=== PATIENT | female | born 1990 | race Caucasian/White ===

== ENCOUNTER 2023-08-01 13:00 | Outpatient (RCR) | payer OTHER, SELFPAY ==
--- NOTE | 2023-07-04 13:38 | OT.OP.EVAL ---
Visit Care Team Role Provider Type Tono Garcia Attending Provider Non-Staff Family Provider Primary Care Provider Referring Provider Specialty: Medical Address: [address] [place] [address], [place], [address] Fax: Email: Occupational Therapy Initial Evaluation OT Outpatient Adult Evaluation Start: 07/04/23 13:05 Freq: Status: Active Protocol: Document 07/04/23 13:05 AMS (Rec: 07/04/23 13:37 AMS [id number]) General Information - Adult Visit Number EVAL; 0/12 visits Plan of Care Dates 07/04/23 - 08/15/23 Insurance Information Prime; EVAL CHARGE ONLY; *Auth x 12 visits Visit Start Time 12:15 Visit Stop Time 13:00 Treatment Setting Outpatient Care Note Type Initial Evaluation Identification Confirmed Yes Identification Confirmed By Self 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 [place] will be modified independent with execution of home exercise program utilizing provided written and visual instructions from therapist as needed. 2. [place] will demonstrate increased ability to participate in meaningful activities in a variety of environments with active incorporation of the non- dominant hand: 2a. This will be evidenced by [place] indicating 2 or less on the Pain Assessment Grid relative to distal left upper extremity. 2b. This will be evidenced by [place] obtaining a score of 15. 00 or less on the QuickDASH UE Outcome Measure. 2c. This will be evidenced by [place] obtaining a score of 20. 00 or less on the QuickDASH UE Work Module. 2d. This will be evidenced by improved strength of L hand w / public information director and pinch strength testing (public information director and pinch strength testing will have improved by 3 or more # of force). Assessment/Plan Treatment Assessment Orlando is 32 y.o. and right hand dominant; she was referred to outpatient OT secondary to left wrist extensor tenosynovitis. 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 [place] reported pain/ discomfort of L wrist presented in Apr. She denies x-rays, numbness and tingling. Pain Assessment Grids completed; indication of 3-5 out of 10 on pain scale relative to medial dorsal and volar areas of left wrist proximal to carpals. Discomfort w/ active weight bearing and w/ passive wrist flex/ext w/ and without elbow ext. Passive wrist ext being completed w/ forearm pronation . Able to tolerate 2nd trial w / modified prayer stretch w/ passive ext. QuickDASH UE Outcome Measure Score = 22.73; QuickDASH UE Work Module Score = 31.25. [place] intermittently utilizes left wrist brace at work which was provided by PCP; she frequently removes brace to complete stretches/range of motion. She modifies daily tasks, including hold cell phone, playing magic, and transporting heavier objects ( publication boxes, cat supplies, laptops). She is currently not doing push-ups and is not weight lifting. GONIOMETER PAIN-FREE ROM MEASUREMENTS: 0-75 degrees active R wrist ext vs 0-70 degrees active L wrist ext; 0- 60 degrees active R wrist flex vs 0-55 degrees active L wrist flex; 0-[address] active bilateral wrist [address]; 0- 30 degrees active bilateral wrist UD. Dynamometer II Strength Testing Results with elbow in 90 degrees Flexion = R public information director 67.0# of force ( compared to 30-34 same-aged peers 121.8 +/- 22.4# of force ) versus L public information director 35.0# of force (compared to - same-aged peers 110.4 +/- 21.7# of force ). Dynamometer II Strength Testing Results with Elbow Extended = R public information director 59.0# of force versus L public information director 32.0# of force. Lateral Jones Pinch = R lateral pinch 14.5# of force ( compared to 30-34 same-aged peers 18.7 +/- 3.0# of force) versus L lateral pinch 12.0# of force (compared to 30-34 same-aged peers 17.8 +/- 3.6# of force). Tip Pinch = R tip pinch 6.0# of force (compared to 30-34 same-aged peers 12.6 +/- 3.0# of force) versus L tip pinch 4.5# of force ( compared to 30-34 same-aged peers 11.7 +/- 2.8# of force). 3-Jaw Pinch = R 3-jaw pinch 10.5# of force (compared to 30 -34 same-aged peers 19.3 +/- 5 .0# of force) versus L 3-jaw pinch 8.5# of force (compared to -34 same-aged peers 18.1 +/- 4.8# of force). Discomfort reported medial dorsal (prox to wrist) w/ resisted wrist ext and wrist flex. MMT 5/[address], UD, flex, ext and R wrist RD and UD. (-) intrinsic tightness noted w/ hook fist; able to execute all tendon glides without complaints. Outpatient OT is recommended to develop home exercise program, address hand/pinch weakness and discuss compensatory/modification strategies/AE not already utilizing, as well as possible conservative measures of pain relief (e.g., contrast baths given diagnosis of tenosynovitis). Home Exercise Program 07/04/23 = Discussed alt to passive wrist flex/ext w/ elbow in 90 degrees flex, including passive wrist ext w/ use of wall and/or modified prayer stretch, with rec to hold for 20 to 30 sec and completing daily 1-2 reps or as needed. Length of treatment (weeks) 6 Plan of Care Start Date 07/04/23 Plan of Care End Date 08/15/23 Treatment Frequency Once a Week Therapeutic Contents Active Range of Motion, Adaptive Equipment Education, Client Education,Cognitive Skills Development,Functional Activities,Home Exercise Program,Joint Protection, Manual Therapy,Education, Neurodevelopment Treatment, Neuromuscular Re-Education, Self-Care,Stretching/ Flexibility Activities, Therapeutic Activities, Therapeutic Exercises, Modalities Modalities As Needed,As Prescribed Additional Types of Modalities Heat/Ice/Contrast Baths/ Ultrasound/Paraffin Bath
--- NOTE | 2023-07-11 13:01 | OT.OP.TRT ---
Visit Care Team Role Provider Type Tono Garcia Attending Provider Non-Staff Family Provider Primary Care Provider Referring Provider Specialty: Medical Address: [address] [place] [address], [facility], [place], [address] Fax: Email: Occupational Therapy Treatment Note OT Outpatient Treatment Note - Adult Start: 07/04/23 13:05 Freq: Status: Active Protocol: Document 07/11/23 12:47 AMS (Rec: 07/11/23 13:01 AMS [id number]) OT Outpatient Adult Treatment Note Session Time Visit Start Time 12:10 Visit Stop Time 12:47 Visit Information Visit Number 06/13 visits Plan of Care Dates 07/04/23 - 08/15/23 Insurance Information Prime; EVAL CHARGE ONLY; *Auth x 12 visits Setting Treatment Setting Outpatient Care Visit Type Note Type Treatment Note General Information General Information Orlando is 32 y.o. and right hand dominant; she was referred to outpatient OT secondary to left wrist extensor tenosynovitis. 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 [place] reported pain/ discomfort of L wrist presented in Apr. She denies x-rays, numbness and tingling. Pain Assessment Grids completed; indication of 3-5 out of 10 on pain scale relative to medial dorsal and volar areas of left wrist proximal to carpals. Discomfort w/ active weight bearing and w/ passive wrist flex/ext w/ and without elbow ext. - Subjective Identification Type Name Identification Reconciled With Medical Record Observations Report of pain/discomfort in the left wrist when pushing up versus down. Report of use of brace, removing brace and stretching/ranging wrist, and use of topical pain relief gel /treatment. Patient/Caregiver Compliance with Home Good Exercise Program - Objective Objective Measurements Please refer to below for progress towards meeting established OT goals: Intermediate Goals 1. [place] will be modified independent with execution of home exercise program utilizing provided written and visual instructions from therapist as needed. 2. [place] will demonstrate increased ability to participate in meaningful activities in a variety of environments with active incorporation of the non- dominant hand: 2a. This will be evidenced by [place] indicating 2 or less on the Pain Assessment Grid relative to distal left upper extremity. 2b. This will be evidenced by [place] obtaining a score of 15. 00 or less on the QuickDASH UE Outcome Measure. 2c. This will be evidenced by [place] obtaining a score of 20. 00 or less on the QuickDASH UE Work Module. 2d. This will be evidenced by improved strength of L hand w / dinkey engineer and pinch strength testing (dinkey engineer and pinch strength testing will have improved by 3 or more # of force). - Exercises 3 Descriptor Resisted pinch/dinkey engineer/hand strengthening. Medium firm resistive blue theraputty. 2 Descriptor Passive ROM/tendon glides. Passive wrist flex 90 degrees elbow flex. Hold for 20 sec x 1 rep. Passive wrist ext 90 degrees elbow flex. Hold for 20 sec x [address] 90 degrees elbow flex w/ use of TT. Hold for 20 sec x 1 rep. Passive wrist UD 90 degrees elbow flex w/ use of TT. Hold for 20 sec x 1 rep. Tendon glides series. x 5 cycles. 1 Descriptor UEB x 10 minutes seated. x 7 minutes forwards direction . x 3 minutes backwards direction. - Assessment Assessment of Improvement Report of pain/discomfort in L wrist with pushing up versus down; is alternating between wearing of brace, topical pain gel application, and ranging/ moving the wrist. Reviewed wrist stretches w/ inclusion of passive wrist RD/UD. Advanced home exercise program . See below. Outpatient OT is recommended to develop home exercise program, address hand/pinch weakness and discuss compensatory/modification strategies/AE not already utilizing, as well as possible conservative measures of pain relief (e.g., contrast baths given diagnosis of tenosynovitis). Home Exercise Program 07/11/23 = Provided w/ medium, firm blue theraputty for home use. Instructed in dinkey engineer/finger flex strengthening, lateral masters pinch strengthening, 3-jaw twist pinch strengthening and resisted finger extension. Instructed in care and storage of theraputty. Discussion of use of theraputty and joint protection; rec ceasing exercise and/or use of putty if experiencing pain/ discomfort in fingers/hand. Rec use for 5-10 minutes or more as tolerated. Instructed in tendon glides; rec execution of series x 5 cycles as needed. Instructed in passive wrist RD/UD w/ use of TT w/ hold for 20-30 sec w/ noted preference for elbow in flexion x 1 rep each. 07/04/23 = Discussed alt to passive wrist flex/ext w/ elbow in 90 degrees flex, including passive wrist ext w/ use of wall and/or modified prayer stretch, with rec to hold for 20 to 30 sec and completing daily 1-2 reps or as needed. - Plan Therapy Recommendations Continue with Current Program, Advance per Rehabilitation Protocol
--- NOTE | 2023-07-18 13:12 | OT.OP.TRT ---
Visit Care Team Role Provider Type Tono Garcia Attending Provider Non-Staff Family Provider Primary Care Provider Referring Provider Specialty: Medical Address: [address] [place] [address], [facility], [place], [address] Fax: Email: Occupational Therapy Treatment Note OT Outpatient Treatment Note - Adult Start: 07/04/23 13:05 Freq: Status: Active Protocol: Document 07/18/23 13:01 AMS (Rec: 07/18/23 13:12 [facility] [id number]) OT Outpatient Adult Treatment Note Session Time Visit Start Time 12:15 Visit Stop Time 12:58 Visit Information Visit Number 07/14 visits Plan of Care Dates 07/04/23 - 08/15/23 Insurance Information Prime; EVAL CHARGE ONLY; *Auth x 12 visits Setting Treatment Setting Outpatient Care Visit Type Note Type Treatment Note General Information General Information Orlando is 32 y.o. and right hand dominant; she was referred to outpatient OT secondary to left wrist extensor tenosynovitis. 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 [place] reported pain/ discomfort of L wrist presented in Apr. She denies x-rays, numbness and tingling. Pain Assessment Grids completed; indication of 3-5 out of 10 on pain scale relative to medial dorsal and volar areas of left wrist proximal to carpals. Discomfort w/ active weight bearing and w/ passive wrist flex/ext w/ and without elbow ext. - Subjective Identification Type Name Identification Reconciled With Medical Record Observations Report of not having to wear L wrist brace; (+) use of blue, firm theraputty and doing wrist stretches. 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 [place] will be modified independent with execution of home exercise program utilizing provided written and visual instructions from therapist as needed. 2. [place] will demonstrate increased ability to participate in meaningful activities in a variety of environments with active incorporation of the non- dominant hand: 2a. This will be evidenced by [place] indicating 2 or less on the Pain Assessment Grid relative to distal left upper extremity. 2b. This will be evidenced by [place] obtaining a score of 15. 00 or less on the QuickDASH UE Outcome Measure. 2c. This will be evidenced by [place] obtaining a score of 20. 00 or less on the QuickDASH UE Work Module. 2d. This will be evidenced by improved strength of L hand w / it assistant and pinch strength testing (it assistant and pinch strength testing will have improved by 3 or more # of force). - Exercises 4 Descriptor Wrist/forearm strengthening exercises. Forearm pronation. Red flex bar. 3 x 10. Forearm supination. Red flex bar. 3 x 10. Wrist flex/ext. Vertical orientation of flex bar. Forearm neutral. 2 x 10. Wrist flex/ext. Vertical orientation of flex bar. Forearm pronation. 2 x 10. 3 Descriptor Resisted pinch/it assistant/hand strengthening. Firm resistive blue theraputty . 2 Descriptor Passive ROM/tendon glides. Passive wrist flex 90 degrees elbow flex. Hold for 20 sec x 1 rep. Passive wrist ext 90 degrees elbow flex. Hold for 20 sec x [address] 90 degrees elbow flex w/ use of TT. Hold for 20 sec x 1 rep. Passive wrist UD 90 degrees elbow flex w/ use of TT. Hold for 20 sec x 1 rep. Tendon glides series. x 5 cycles. 1 Descriptor UEB x 10 minutes seated. x 8 minutes forwards direction . x 2 minutes backwards direction. - Assessment Assessment of Improvement Denied need for wearing wrist brace over the past week; feels that 'it is getting better'. Denied recently pushing up with the L hand; report of feeling it more on the dorsal wrist with pushing the wrist down into wrist flexion w/ elbow in 90 degrees flexion. (+) use of blue, firm theraputty and execution of passive wrist stretches. Introduced flex bar for wrist/ forearm strengthening; trialed red and blue flex bar w/ determination that red flex bar is the appropriate resistance to use right now for good form/execution of 3 sets (unless breakdown for example 1 set blue, 2 sets red ). Overall, good session. Outpatient OT is recommended to develop home exercise program, address hand/pinch weakness and discuss compensatory/modification strategies/AE not already utilizing, as well as possible conservative measures of pain relief (e.g., contrast baths given diagnosis of tenosynovitis). Home Exercise Program 07/11/23 = Provided w/ firm blue theraputty for home use. Instructed in it assistant/finger flex strengthening, lateral masters pinch strengthening, 3-jaw twist pinch strengthening and resisted finger extension. Instructed in care and storage of theraputty. Discussion of use of theraputty and joint protection; rec ceasing exercise and/or use of putty if experiencing pain/ discomfort in fingers/hand. Rec use for 5-10 minutes or more as tolerated. Instructed in tendon glides; rec execution of series x 5 cycles as needed. Instructed in passive wrist RD/UD w/ use of TT w/ hold for 20-30 sec w/ noted preference for elbow in flexion x 1 rep each. 07/04/23 = Discussed alt to passive wrist flex/ext w/ elbow in 90 degrees flex, including passive wrist ext w/ use of wall and/or modified prayer stretch, with rec to hold for 20 to 30 sec and completing daily 1-2 reps or as needed. - Plan Therapy Recommendations Continue with Current Program, Advance per Rehabilitation Protocol
--- NOTE | 2023-07-25 15:15 | OT.OP.TRT ---
Visit Care Team Role Provider Type Tono Garcia Attending Provider Non-Staff Family Provider Primary Care Provider Referring Provider Specialty: Medical Address: [address] [place] [address], [facility], [place], [address] Email: Occupational Therapy Treatment Note OT Outpatient Treatment Note - Adult Start: 07/04/23 13:05 Freq: Status: Active Protocol: Document 07/25/23 15:01 [facility] (Rec: 07/25/23 15:15 [facility] [id number]) OT Outpatient Adult Treatment Note Session Time Visit Start Time 12:25 Visit Stop Time 12:58 Visit Information Visit Number 08/11 visits Plan of Care Dates 07/04/23 - 08/15/23 Insurance Information Prime; EVAL CHARGE ONLY; *Auth x 12 visits Setting Treatment Setting Outpatient Care Visit Type Note Type Treatment Note General Information General Information Orlando is 32 y.o. and right hand dominant; she was referred to outpatient OT secondary to left wrist extensor tenosynovitis. 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 [place] reported pain/ discomfort of L wrist presented in Apr. She denies x-rays, numbness and tingling. Pain Assessment Grids completed; indication of 3-5 out of 10 on pain scale relative to medial dorsal and volar areas of left wrist proximal to carpals. Discomfort w/ active weight bearing and w/ passive wrist flex/ext w/ and without elbow ext. - Subjective Observations [place] reported accidently throwing away the blue firm theraputty that was provided to her; she also inquired about a more resistant putty for home use. Patient/Caregiver Compliance with Home Good Exercise Program - Objective Objective Measurements Please refer to below for progress towards meeting established OT goals: [facility] Goals 1. [place] will be modified independent with execution of home exercise program utilizing provided written and visual instructions from therapist as needed. 2. [place] will demonstrate increased ability to participate in meaningful activities in a variety of environments with active incorporation of the non- dominant hand: 2a. This will be evidenced by [place] indicating 2 or less on the Pain Assessment Grid relative to distal left upper extremity. 2b. This will be evidenced by [place] obtaining a score of 15. 00 or less on the QuickDASH UE Outcome Measure. 2c. This will be evidenced by [place] obtaining a score of 20. 00 or less on the QuickDA UE Work Module. 2d. This will be evidenced by improved strength of L hand w / clinical pharmacy specialist and pinch strength testing (clinical pharmacy specialist and pinch strength testing will have improved by 3 or more # of force). - Exercises 4 Descriptor Wrist/forearm strengthening exercises. Forearm pronation. Red flex bar. 2-3 sets x 5-10 reps. Forearm supination. Red flex bar. 2-3 sets x 5-10 reps. Wrist flex/ext. Vertical orientation of flex bar. Forearm neutral. 2-3 sets x 5- 10 reps. Wrist flex/ext. Vertical orientation of flex bar. Forearm pronation. 2-3 sets x 5-10 reps. 3 Descriptor Resisted pinch/clinical pharmacy specialist/hand strengthening. Firm resistive blue theraputty . 2 Descriptor Passive ROM/tendon glides. Passive wrist flex 90 degrees elbow flex. Hold for 20 sec x 1 rep. Passive wrist ext 90 degrees elbow flex. Hold for 20 sec x [address] 90 degrees elbow flex w/ use of TT. Hold for 20 sec x 1 rep. Passive wrist UD 90 degrees elbow flex w/ use of TT. Hold for 20 sec x 1 rep. Tendon glides series. x 5 cycles. 1 Descriptor UEB x 10 minutes seated. x 7 min forwards direction. x 3 min backwards direction. - Assessment Assessment of Improvement Denied need for wearing wrist brace although she does keep the wrist brace in her car; report of recent loss of theraputty and inquiry into 'a more' resistant putty. Encountered 'twinges' w/ use of red flex bar w/ flex bar positioned horizontally and w/ execution of pronation. Discussed positioning putty away from body near full elbow extension for more of a challenge if looking into possible use of flex bar in the home. [place] verbalized focus more on utilizing flex bar in different directions for strengthening vs counting sets/reps. Overall, good session. Outpatient OT is recommended to develop home exercise program, address hand/pinch weakness and discuss compensatory/modification strategies/AE not already utilizing, as well as possible conservative measures of pain relief (e.g., contrast baths given diagnosis of tenosynovitis). Home Exercise Program 07/25/23 = Provided w/ firm blue theraputty for home use; rec looking on the web (e.g., such as [employer]) in order to invest in extra firm theraputty given that putty seems to become too easy. 07/11/23 = Provided w/ firm blue theraputty for home use. Instructed in clinical pharmacy specialist/finger flex strengthening, lateral masters pinch strengthening, 3-jaw twist pinch strengthening and resisted finger extension. Instructed in care and storage of theraputty. Discussion of use of theraputty and joint protection; rec ceasing exercise and/or use of putty if experiencing pain/ discomfort in fingers/hand. Rec use for 5-10 minutes or more as tolerated. Instructed in tendon glides; rec execution of series x 5 cycles as needed. Instructed in passive wrist RD/UD w/ use of TT w/ hold for 20-30 sec w/ noted preference for elbow in flexion x 1 rep each. 07/04/23 = Discussed alt to passive wrist flex/ext w/ elbow in 90 degrees flex, including passive wrist ext w/ use of wall and/or modified prayer stretch, with rec to hold for 20 to 30 sec and completing daily 1-2 reps or as needed. - Plan Therapy Recommendations Advance per Rehabilitation Protocol
--- NOTE | 2023-08-01 15:01 | OT.OP.TRT ---
Visit Care Team Role Provider Type Tono Garcia Attending Provider Non-Staff Family Provider Primary Care Provider Referring Provider Specialty: Medical Address: [address] [place] [address], [facility], [place], [address] Email: Occupational Therapy Treatment Note OT Outpatient Treatment Note - Adult Start: 07/04/23 13:05 Freq: Status: Active Protocol: Document 08/01/23 14:49 AMS (Rec: 08/01/23 15:01 AMS [id number]) OT Outpatient Adult Treatment Note Session Time Visit Start Time 13:05 Visit Stop Time 13:50 Visit Information Visit Number 4/ visits Plan of Care Dates 07/04/23 - 08/15/23 Insurance Information Prime; EVAL CHARGE ONLY; *Auth x 12 visits Setting Treatment Setting Outpatient Care Visit Type Note Type Treatment Note General Information General Information Orlando is 32 y.o. and right hand dominant; she was referred to outpatient OT secondary to left wrist extensor tenosynovitis. 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 Orlando reported pain/ discomfort of L wrist presented in Apr. She denies x-rays, numbness and tingling. Pain Assessment Grids completed; indication of 3-5 out of 10 on pain scale relative to medial dorsal and volar areas of left wrist proximal to carpals. Discomfort w/ active weight bearing and w/ passive wrist flex/ext w/ and without elbow ext. - Subjective Observations Orlando reported that she is has not had to use the wrist brace ; she reports discomfort w/ pushing up from bed. She has been using the blue, firm theraputty. Report of discomfort radially --> then ulnarly in carpals and w/ passive wrist flexion dorsally . She is going on detachment to [place] for 3 weeks. Patient/Caregiver Compliance with Home Good Exercise Program - Objective Objective Measurements Please refer to below for progress towards meeting established OT goals: [facility] Goals 1. Orlando will be modified independent with execution of home exercise program utilizing provided written and visual instructions from therapist as needed. 2. Orlando will demonstrate increased ability to participate in meaningful activities in a variety of environments with active incorporation of the non- dominant hand: 2a. This will be evidenced by Orlando indicating 2 or less on the Pain Assessment Grid relative to distal left upper extremity. 2b. This will be evidenced by Orlando obtaining a score of 15. 00 or less on the QuickDASH UE Outcome Measure. 2c. This will be evidenced by Orlando obtaining a score of 20. 00 or less on the QuickDASH UE Work Module. 2d. This will be evidenced by improved strength of L hand w / train dispatcher and pinch strength testing (train dispatcher and pinch strength testing will have improved by 3 or more # of force). - Exercises 4 Descriptor Wrist/forearm strengthening exercises. Forearm pronation. Red flex bar. 2 sets x 10 reps. Forearm supination. Red flex bar. 2 sets x 10 reps. Wrist flex/ext. Vertical orientation of flex bar. Forearm neutral. 1 set x 10 reps. Wrist flex/ext. Vertical orientation of flex bar. Forearm pronation. 1 set x [address] 1 set x 10 reps. Wrist UD. 1 set x 10 reps. 2 Descriptor Passive ROM/tendon glides. Passive wrist flex 90 degrees elbow flex. Hold for 20 sec x 1 rep. Passive wrist ext 90 degrees elbow flex. Hold for 20 sec x [address] 90 degrees elbow flex w/ use of TT. Hold for 20 sec x 1 rep. Passive wrist UD 90 degrees elbow flex w/ use of TT. Hold for 20 sec x 1 rep. Tendon glides series. x 10 cycles w/ focus on hook and duck positions. 1 Descriptor UEB x 10 minutes seated. x 10 min forwards direction. - Assessment Assessment of Improvement Orlando reports that she going to [facility] for 3 weeks; she has the firm, blue theraputty that she uses. With blue, firm theraputty she is executing finger flexion, finger extension w/ loop, pinching w/ folding of putty, twisting of putty in both directions w/ focus on fingers, twisting of putty in both directions w/ wrist ext/flex, and pulling the putty. She denied questions re: putty use w/ preference for container storage. She denies use of brace. Discomfort noted in wrist when pushing up from the bed, assisting left hand w/ right hand when transporting metal case(s) and w/ passive wrist flexion. Denial of pain/ discomfort w/ crepitus in L wrist. Some fatigue/w/ report of starting to 'feel it' in dorsal L wrist post approx 10 min using red flex bar. Discussed considering investment in personal flex bar. Reviewed returning to neutral between tendon glides to ensure excursion of tendon thru entire available ROM/ movement. Overall, good session. Outpatient OT is recommended to develop home exercise program, address hand/pinch weakness and discuss compensatory/modification strategies/AE not already utilizing, as well as possible conservative measures of pain relief (e.g., contrast baths given diagnosis of tenosynovitis). Home Exercise Program 07/25/23 = Provided w/ firm blue theraputty for home use; rec looking on the web (e.g., such as [employer]) in order to invest in extra firm theraputty given that putty seems to become too easy. 07/11/23 = Provided w/ firm blue theraputty for home use. Instructed in train dispatcher/finger flex strengthening, lateral masters pinch strengthening, 3-jaw twist pinch strengthening and resisted finger extension. Instructed in care and storage of theraputty. Discussion of use of theraputty and joint protection; rec ceasing exercise and/or use of putty if experiencing pain/ discomfort in fingers/hand. Rec use for 5-10 minutes or more as tolerated. Instructed in tendon glides; rec execution of series x 5 cycles as needed. Instructed in passive wrist RD/UD w/ use of TT w/ hold for 20-30 sec w/ noted preference for elbow in flexion x 1 rep each. 07/04/23 = Discussed alt to passive wrist flex/ext w/ elbow in 90 degrees flex, including passive wrist ext w/ use of wall and/or modified prayer stretch, with rec to hold for 20 to 30 sec and completing daily 1-2 reps or as needed. - Plan Therapy Recommendations Advance per Rehabilitation Protocol
--- NOTE | 2023-09-02 09:26 | OT.OP.DC ---
Visit Care Team Role Provider Type Tono Garcia Attending Provider Non-Staff Family Provider Primary Care Provider Referring Provider Address: [address] [place] [address], [place], [address] Email: OT Outpatient OT Outpatient Adult Evaluation Start: 07/04/23 13:05 Freq: Status: Active Protocol: Document 07/04/23 13:05 AMS (Rec: 07/04/23 13:37 AMS [id number]) General Information - Adult Visit Information Visit Number EVAL; 0/12 visits Plan of Care Dates 07/04/23 - 08/15/23 Insurance Information Prime; EVAL CHARGE ONLY; *Auth x 12 visits Session Time Visit Start Time 12:15 Visit Stop Time 13:00 Setting Treatment Setting Outpatient Care Visit Type Note Type Initial Evaluation Identification Identification Confirmed Yes Identification Confirmed By Self Goals Correction 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 Orlando will be modified independent with execution of home exercise program utilizing provided written and visual instructions from therapist as needed. 2. Orlando will demonstrate increased ability to participate in meaningful activities in a variety of environments with active incorporation of the non- dominant hand: 2a. This will be evidenced by Orlando indicating 2 or less on the Pain Assessment Grid relative to distal left upper extremity. 2b. This will be evidenced by Orlando obtaining a score of 15. 00 or less on the QuickDASH UE Outcome Measure. 2c. This will be evidenced by Orlando obtaining a score of 20. 00 or less on the QuickDASH UE Work Module. 2d. This will be evidenced by improved strength of L hand w / parking enforcement officer and pinch strength testing (parking enforcement officer and pinch strength testing will have improved by 3 or more # of force). Assessment/Plan Assessment Treatment Assessment Orlando is 32 y.o. and right hand dominant; she was referred to outpatient OT secondary to left wrist extensor tenosynovitis. 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 Orlando reported pain/ discomfort of L wrist presented in Apr. She denies x-rays, numbness and tingling. Pain Assessment Grids completed; indication of 3-5 out of 10 on pain scale relative to medial dorsal and volar areas of left wrist proximal to carpals. Discomfort w/ active weight bearing and w/ passive wrist flex/ext w/ and without elbow ext. Passive wrist ext being completed w/ forearm pronation . Able to tolerate 2nd trial w / modified prayer stretch w/ passive ext. QuickDASH UE Outcome Measure Score = 22.73; QuickDASH UE Work Module Score = 31.25. Orlando intermittently utilizes left wrist brace at work which was provided by PCP; she frequently removes brace to complete stretches/range of motion. She modifies daily tasks, including hold cell phone, playing magic, and transporting heavier objects ( publication boxes, cat supplies, laptops). She is currently not doing push-ups and is not weight lifting. GONIOMETER PAIN-FREE ROM MEASUREMENTS: 0-75 degrees active R wrist ext vs 0-70 degrees active L wrist ext; 0- 60 degrees active R wrist flex vs 0-55 degrees active L wrist flex; 0-[address] wrist [address]; 0- 30 degrees active bilateral wrist UD. Dynamometer II Strength Testing Results with elbow in 90 degrees Flexion = R parking enforcement officer 67.0# of force ( compared to 30-34 same-aged peers 121.8 +/- 22.4# of force ) versus L parking enforcement officer 35.0# of force (compared to 30-34 same-aged peers 110.4 +/- 21.7# of force ). Dynamometer II Strength Testing Results with Elbow Extended = R parking enforcement officer 59.0# of force versus L parking enforcement officer 32.0# of force. Lateral Jones Pinch = R lateral pinch 14.5# of force ( compared to 30-34 same-aged peers 18.7 +/- 3.0# of force) versus L lateral pinch 12.0# of force (compared to 30-34 same-aged peers 17.8 +/- 3.6# of force). Tip Pinch = R tip pinch 6.0# of force (compared to 30-34 same-aged peers 12.6 +/- 3.0# of force) versus L tip pinch 4.5# of force ( compared to 30-34 same-aged peers 11.7 +/- 2.8# of force). 3-Jaw Pinch = R 3-jaw pinch 10.5# of force (compared to 30 -34 same-aged peers 19.3 +/- 5 .0# of force) versus L 3-jaw pinch 8.5# of force (compared to 30-34 same-aged peers 18.1 +/- 4.8# of force). Discomfort reported medial dorsal (prox to wrist) w/ resisted wrist ext and wrist flex. MMT 5/[address], UD, flex, ext and R wrist RD and UD. (-) intrinsic tightness noted w/ hook fist; able to execute all tendon glides without complaints. Outpatient OT is recommended to develop home exercise program, address hand/pinch weakness and discuss compensatory/modification strategies/AE not already utilizing, as well as possible conservative measures of pain relief (e.g., contrast baths given diagnosis of tenosynovitis). Home Exercise Program 07/04/23 = Discussed alt to passive wrist flex/ext w/ elbow in 90 degrees flex, including passive wrist ext w/ use of wall and/or modified prayer stretch, with rec to hold for 20 to 30 sec and completing daily 1-2 reps or as needed. Plan Length of treatment (weeks) 6 Plan of Care Start Date 07/04/23 Plan of Care End Date 08/15/23 Treatment Frequency Once a Week Therapeutic Contents Active Range of Motion, Adaptive Equipment Education, Client Education,Cognitive Skills Development,Functional Activities,Home Exercise Program,Joint Protection, Manual Therapy,Education, Neurodevelopment Treatment, Neuromuscular Re-Education, Self-Care,Stretching/ Flexibility Activities, Therapeutic Activities, Therapeutic Exercises, Modalities Modalities As Needed,As Prescribed Additional Types of Modalities Heat/Ice/Contrast Baths/ Ultrasound/Paraffin Bath Functional Wrist/Hand Scan Hand Side Sensory Assessment Sensory Profile2 OT Outpatient Treatment Note - Adult Start: 07/04/23 13:05 Freq: Status: Active Protocol: Document 09/02/23 09:24 [facility] (Rec: 09/02/23 09:26 [facility] [id number]) OT Outpatient Adult Treatment Note Visit Information Visit Number 4/12 visits Plan of Care Dates 07/04/23 - 08/15/23 Insurance Information Prime; EVAL CHARGE ONLY; *Auth x 12 visits Setting Treatment Setting Outpatient Care Visit Type Note Type Discharge Summary General Information General Information Orlando is 32 y.o. and right hand dominant; she was referred to outpatient OT secondary to left wrist extensor tenosynovitis. 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 Orlando reported pain/ discomfort of L wrist presented in Apr. She denies x-rays, numbness and tingling. Pain Assessment Grids completed; indication of 3-5 out of 10 on pain scale relative to medial dorsal and volar areas of left wrist proximal to carpals. Discomfort w/ active weight bearing and w/ passive wrist flex/ext w/ and without elbow ext. - Subjective Observations Orlando has not been seen in the outpatient setting by OT since 08/01/23 and outpatient OT POC 08/15/23; thus, recommend d/c from outpatient OT at this time and therapist to re-evaluate as deemed appropriate by PCP w/ receipt of new referral. - Objective Objective Measurements Please refer to below for progress towards meeting established OT goals: Correction Goals ALL GOALS D/C 09/02/23 1. Orlando will be modified independent with execution of home exercise program utilizing provided written and visual instructions from therapist as needed. 2. Orlando will demonstrate increased ability to participate in meaningful activities in a variety of environments with active incorporation of the non- dominant hand: 2a. This will be evidenced by Orlando indicating 2 or less on the Pain Assessment Grid relative to distal left upper extremity. 2b. This will be evidenced by Orlando obtaining a score of 15. 00 or less on the QuickDASH UE Outcome Measure. 2c. This will be evidenced by Orlando obtaining a score of 20. 00 or less on the QuickDASH UE Work Module. 2d. This will be evidenced by improved strength of L hand w / parking enforcement officer and pinch strength testing (parking enforcement officer and pinch strength testing will have improved by 3 or more # of force). - - Assessment Assessment of Improvement Orlando has not been seen in the outpatient setting by OT since 08/01/23 and outpatient OT POC 08/15/23; thus, recommend d/c from outpatient OT at this time and therapist to re-evaluate as deemed appropriate by PCP w/ receipt of new referral. - Plan Therapy Recommendations Discharge from Occupational Therapy
== END 2023-09-03 13:51 ==
LOC: OT 13:00
DX: M25.539 Pain in unspecified wrist (principal)
CPT/HCPCS: 97110; 97165

== ENCOUNTER 2023-11-07 13:18 | Day surgery (SDC) | payer OTHER, SELFPAY ==
[2023-11-07] MEDS: LACTATED RINGERS 1,000 ML 42 ML IV (13:43)
[2023-11-07 13:46] VITALS: BP 130/96; PULSE 85; RESP 16; TEMP 36.8; O2SAT 98
--- NOTE | 2023-11-07 14:00 | PM.PREOP ---
Pre-operative Note Interval Note History & Physical reviewed/Exam performed by Physician: Yes Changes to H&P: No
--- NOTE | 2023-11-07 14:13 | PM.OP.EGD ---
Operative Date/Time/Diagnoses Date of procedure: 11/07/23 Time of procedure: 14:14 Pre-op diagnosis: Abdominal pain Procedure & Clinicians Study performed: Esophagogastroduodenoscopy Same procedure as scheduled: Yes Indications: Abdominal pain Surgeon: Wil Malin Procedure Notes Procedure in detail: The history and physical was performed/updated and the patient is ASA class is 2. The procedure was discussed in detail with the patient. Potential risks complications including infection, bleeding, missed diagnosis, perforation, need for surgery, and were explained. Their questions were answered and informed consent was obtained. Patient placed in left lateral decubitus position. Time out was performed. Procedural sedation was administered by Anesthesia. A bite block was placed. the scope was inserted into the mouth and advanced through the esophagus and into the stomach. The pylorus was intubated and the duodenum was examined to the 2nd portion. The scope was then withdrawn into the stomach and was retroflexed. The stomach was decompressed and scope was withdrawn slowly through the esophagus. FINDINGS -Unremarkable upper endoscopy. No ulceration. No gastritis, esophagitis, or duodenitis. The patient tolerated the procedure well and will be discharged when they meet criteria. Specimen(s): none sent Impression: Unremarkable esophagogastroduodenoscopy Post-procedure Plan for aftercare: HIDA scan has been ordered rule out biliary dyskinesia Disposition: same day surgery
[2023-11-07 14:15] VITALS: BP 104/65; PULSE 68; RESP 16; TEMP 36.8; O2SAT 99
[2023-11-07 14:20] VITALS: BP 102/64; PULSE 62; RESP 16; O2SAT 99
[2023-11-07 14:25] VITALS: BP 106/62; PULSE 62; RESP 16; O2SAT 99
[2023-11-07 14:26] VITALS: BP 108/62; PULSE 64; RESP 16; O2SAT 99
== END 2023-11-07 15:04 | disposition home or self-care (01) ==
PROVIDERS: Referring Provider Surgery; Visit Provider Surgery
PROC: 0DJ08ZZ Inspection of Upper Intestinal Tract, Via Natural or Artificial Opening Endoscopic (ICD-10-PCS; CPT 43235; principal; 2023-11-07 15:30)
DX: R10.9 Unspecified abdominal pain (principal)
CPT/HCPCS: 43235; J2704

== ENCOUNTER → 2023-11-28 07:59 | Outpatient (CLI) | payer OTHER, SELFPAY ==
--- NOTE | 2023-11-28 08:00 | DI.NM.S_ITS ---
PROCEDURE: NM HIDA WITH CCK PHARMACEUTICAL: 5.5 mCi Tc-99m mebrofenin IV; 1.1 mcg CCK IV. INDICATIONS: r/o biliary dyskinesia TECHNIQUE: Following intravenous administration of Tc-99m mebrofenin, sequential anterior abdominal images were obtained. To evaluate the contractile response of the gallbladder in response to Cholecystokinin (CCK), sincalide (0.02 ?g/kg) was administered by slow intravenous infusion approximately 60 minutes after the administration of the radiopharmaceutical. Sequential imaging was continued for 30 minutes after the start of CCK infusion. Gallbladder ejection fraction was calculated. COMPARISON: None. FINDINGS: Biliary scan: There is normal tracer uptake and excretion by the liver. There is normal visualization of the intrahepatic ducts, common bile duct, and gallbladder. There is normal tracer transit into the duodenum. CCK stimulation: There is normal contractile response of the gallbladder to CCK infusion. The calculated gallbladder ejection fraction is 90%; normal values are above 35%. It has been shown that any patient abdominal pain after CCK administration is related to the rate of CCK injection, rather than to any underlying gallbladder disease (Clinical Nuclear Medicine 2012; 37: 63-70. Journal of Nuclear Medicine 2014; 55: 1-9). IMPRESSION: 1. Normal filling of gallbladder. No evidence for acute cholecystitis. 2. Normal contractile response of gallbladder to CCK stimulation. Dictated by: Bentley Scales M.D. on 11/28/2023 at 10:33 Approved by: Bentley Scales M.D. on 11/28/2023 at 10:34
== END ==
LOC: NUCM 08:00
PROVIDERS: Referring Provider Surgery; Visit Provider Surgery
DX: R10.13 Epigastric pain (principal)
CPT/HCPCS: 78227; A9537; J2805